=== PATIENT | female | born 1980 | race Caucasian/White ===

== ENCOUNTER → 2020-04-20 14:27 | Outpatient (BNVA) | payer SELFPAY | PROVIDERS: Visit Provider Obstetrics & Gynecology | DX: Z11.3 Encounter for screening for infections with a predominantly sexual mode of transmission (principal); Z12.4 Encounter for screening for malignant neoplasm of cervix | CPT/HCPCS: 81000; 86592; 86803; 87340; 87491; 87591; 87806; 88175 ==

== ENCOUNTER 2020-05-31 14:10 | Outpatient (RCR) | payer BC, SELFPAY | END 2020-06-08 23:59 | disposition home or self-care (01) | LOC: SPT 14:10 | PROVIDERS: PCP Family Medicine; Visit Provider Family Medicine | DX: M54.5 Low back pain (principal); Z91.89 Other specified personal risk factors, not elsewhere classified | CPT/HCPCS: 97110; 97162 ==

== ENCOUNTER 2020-06-09 06:00 | Outpatient (RCR) | payer BC, SELFPAY | END 2020-07-08 23:59 | disposition home or self-care (01) | LOC: SPT 06:00 | PROVIDERS: PCP Family Medicine; Visit Provider Family Medicine | DX: Z91.89 Other specified personal risk factors, not elsewhere classified (principal); M54.5 Low back pain | CPT/HCPCS: 97110 ==